=== PATIENT | male | born 1995 | race Caucasian/White ===

== ENCOUNTER 2024-06-03 08:49 | Outpatient (AMB) | payer OTHER, SELFPAY ==
--- NOTE | 2024-06-03 08:56 | MHC.PC.OV ---
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 Note: New patient visit Production Quality Manager Required: No Allergies No Known Allergies Allergy (Verified 06/03/24 08:57) Medication List - Last Reconciled 06/03/24 by Earnestine Cantu PA-C cetirizine (Zyrtec) 10 mg PO DAILY PRN doxycycline hyclate mg PO emtricitabine-tenofovir alafen 200-25 mg (Descovy) 1 tab PO DAILY fluticasone propionate 50 mcg/actuation (Flonase Allergy Relief) 1 spray intranasal DAILY Tobacco use date assessed: 06/03/24 Dental Screening Dental Screen Date: 06/03/24 Did you have a dental visit in the last 12 months?: Yes Did you have a dental problem in the last 6 months where you did not have access to dental care?: No Was dental information given to patient?: No 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 He has a history of venous thoracic syndrome and states that he will get records. He was followed at [facility] about 6 years ago for this and he did have surgical intervention. He states that he was told to only follow up if needed if he had any pain or discoloration of his left upper extremity. The patient smokes approximately three cigarettes daily, having sustained this habit for six years, and expresses a desire to discontinue. Additionally, the patient reports a long-standing difficulty with memory and concentration, suspecting undiagnosed ADHD. Concerns about hair thinning were also addressed. he has not really noted any significant hair loss at this point but would like to see Dermatology about what he can do to prolong his hairline. He also would like a skin check as he has numerous moles. His paternal grandfather has a history of skin cancer. Input regarding prior Right mastoid fracture post-skiing accident was discussed, though symptoms appear non-contributory to the current issues. Patient is following online for prescriptions for Descovy. Health Maintenance - Smoking cessation counseling discussed - Discussion regarding regular follow-up for Descovy medication management and STI/HIV screening - Recommendation for dietary adjustments, including the introduction of healthy fats and proteins - Exercise encouraged for overall well-being and cognitive function - Screening tests including liver function, kidney function, electrolytes, thyroid function, and complete blood count ordered Social History - Employment: Works on a farm; currently between farm jobs - Housing: Recently moved to [place] - Family history: Paternal grandfather with skin cancer, maternal grandparents succumbed to lung cancer due to smoking - Tobacco use: Smokes 3 cigarettes per day, expresses intention to quit eventually - Nutrition: Transitioning from a vegetarian diet to include more meat consumption - Exercise: Initiates exercise for overall health Review of Systems - Neurological: Reports memory difficulty and challenges with concentration - Respiratory: Reports current smoking - Psychiatric: Denies diagnosed ADHD but presents symptoms indicative of the disorder [facility] Surgical History (Updated 06/03/24 @ 09:07 by Carrol Le CMA) No pertinent past surgical history Family History (Updated 06/03/24 @ 09:05 by Carrol Le CMA) Paternal Grandfather Skin cancer Maternal Grandfather Lung cancer Maternal Aunt Lung cancer Maternal Grandmother Lung cancer Social History (Updated 06/03/24 @ 09:10 by Carrol Le CMA) Housing: Apartment Alcohol intake: current Patient Tobacco Use Status: Current everyday Tobacco user Cigarettes Per Day: 3 Years Smoked: 6 e-Cigarette/Vaping Use: Never Used Second Hand Smoke Exposure: No service: No Current occupational status: employed Current occupation: tobar Current occupational exposures/hazards: Yes (tractors, equipment) Cognitive needs: No Hearing needs: No Vision needs: Yes (glasses) Questionnaire PHQ-9 Over the last 2 weeks, how often have you been bothered by any of the following problems? 1. Little interest or pleasure in doing things: not at all 2. Feeling down, depressed, or hopeless: not at all 3. Trouble falling or staying asleep, or sleeping too much: not at all 4. Feeling tired or having little energy: several days 5. Poor appetite or overeating: not at all 6. Feeling bad about yourself - or that you are a failure or have let yourself or your family down: not at all 7. Trouble concentrating on things, such as reading the newspaper or watching television: several days 8. Moving or speaking so slowly that other people could have noticed. Or the opposite - being so fidgety or restless that you have been moving around a lot more than usual: not at all 9. Thoughts that you would be better off or of hurting yourself in some way: not at all Total score: 2 Depression Screening Interpretation: Negative Depression Screening Done: Yes 80648 - PHQ-9 Billing: Yes Source: Developed by Drs. Javier Blake, Kandy Haas, Luis E Johnson and colleagues, with an educational danii from [employer]. Thrive Questionnaire Date Thrive assessed: 06/03/24 I am a: Patient What is your living situation today?: I have a steady place to live Within the past 12 months, did the food you bought not last and you didn't have the money to get more?: Never true Within the past 12 months, did you worry whether your food would run out before you got money to buy more?: Never true Do you have trouble paying for medicines?: Yes Do you have trouble getting transportation to medical appointments?: No Do you have trouble paying your heating and electricity bill?: No Do you have trouble taking care of your child, family member or friend?: No Do you have trouble with day-to-day activities such as bathing, preparing meals, shopping, managing finances, etc.?: No Are you currently unemployed and looking for a job?: No Are you interested in more education?: Yes Please select the resources that you would like help with: Housing/Longterm, Food, Paying for medicine, Utilities, Daily support and Education Currently or been in a relationship where the following occur: No concerns reported THRIVE Score: 0 AUDIT C Alcohol Use Questionnaire (AUDIT-C) 1. How often do you have a drink containing alcohol?: 4 or more times a week 2. How many drinks containing alcohol do you have on a typical day when you are drinking?: 1 or 2 3. How often do you have six or more drinks on one occasion?: Never Total Score: 4 Score Reviewed/Action Taken: Yes NENA-7 AMB Questionnaire NENA-7 Date NENA - 7 assessed: 06/03/24 Feeling nervous, anxious, or on edge: 1 = Several days Not being able to stop or control worryin = Not at all Worrying too much about different things: 0 = Not at all Trouble relaxin = Several days Being so restless that it is hard to sit still: 1 = Several days Becoming easily annoyed or irritable: 0 = Not at all Feeling afraid as if something awful might happen: 0 = Not at all Total NENA-7 score (0-4 normal; 5-9 mild; 10-14 moderate; 15-21 severe): 3 Source: Developed by Drs. Javier Blake, Kandy Haas, Luis E Johnson and colleagues, with an educational danii from [employer]. NENA-7 Assessment Billing NENA-7 Assessment Tool: NENA-7 Assessment 75206 Physical exam (Primary Care) Vital Signs: Last Vital Signs Pulse 83 06/03/24 09:08 BP 100/76 06/03/24 09:08 Pulse Ox 99 06/03/24 09:08 Oxygen Delivery Method Room Air 06/03/24 09:08 BMI result Body Mass Index 22.5 Tobacco/Smoking Status: Tobacco use Status Tobacco use date assessed 06/03/24 06/03/24 09:10 Patient Tobacco Use Status Current everyday Tobacco 06/03/24 09:10 e-Cigarette/Vaping Use Never Used 06/03/24 09:10 PHQ-9: PHQ-9 Score PHQ-9: Total score 2 06/03/24 09:10 Depression Screening Interpretation: Negative Thrive Assessment: Date of Thrive Assessment Date Thrive assessed 06/03/24 06/03/24 09:10 Currently or been in a relationship where the following occur: No concerns reported Const Orientation/consciousness: patient oriented x3 HENMT Ears: hearing grossly normal bilaterally and TM's normal bilaterally General nose exam: No nasal polyps present Face and sinus: Yes sinuses nontender Mouth: Normal oral and palatal mucosa present Eyes Pupils: Equal, round and reactive pupils present EOM: EOMs intact bilaterally Neck Neck: Yes full ROM and Yes no lymphadenopathy Thyroid: Thyroid normal Chest Chest palpation & inspection: normal inspection of the chest Resp Auscultation: clear to auscultation bilaterally Cardio Rate: regular rate Rhythm: regular rhythm Heart sounds: S1 normal heart sound present and S2 normal heart sound present Peripheral pulses: Peripheral pulses 2+ throughout GI Other: Soft, nontender Auscultation: normal bowel sounds Rectal Exam - Male: Yes deferred General: Yes no CVA tenderness Back/Spine/Pelvis Other: Nontender Back: no CVA tenderness Skin General skin exam: no rashes or lesions noted Neuro General: patient oriented x3, gait normal, CN's II-XI intact bilaterally and deep tendon reflexes 2+ bilaterally Cranial nerves: Yes Equal, round and reactive pupils present Motor exam (neuro): 5/5 motor strength present throughout Sensory Exam: double simultaneous stimulation for sensation normal Coordination: [id number] test normal and Romberg test negative Extrem General: Yes normal to inspection and Yes full ROM Psych Affect: normal affect Attitude: cooperative Thought process: Normal thought process present Thought content: Normal thought content present Insight: Good insight present (Psych) Judgement: Good judgement present (Psych) Coding Level of Care Code New Pt Level 4 (35698) Complex EM visit Add On G2211 Diagnoses Hair thinning L65.9 Numerous moles D22.9 Forgetfulness R68.89 Attention and concentration deficit R41.840 Additional Codes NENA-7 Assessment Billing - NENA-7 Assessment Tool: NENA-7 Assessment 73195 ([id number]) PHQ-9 - 13337 - PHQ-9 Billing: Yes ([id number]) Assessment & Plan Assessment & Plan (1) Hair thinning: Code(s): L65.9 - Nonscarring hair loss, unspecified Category: Medical Plan: Referral to dermatology (2) Numerous moles: Code(s): D22.9 - Melanocytic nevi, unspecified Category: Medical Plan: As above (3) Forgetfulness: Code(s): R68.89 - Other general symptoms and signs Category: Medical Plan: Longstanding history of this since childhood. Wonders if this is possibly related to ADD or ADHD. Referral for neuropsych testing. Does report having imaging of the brain a few years ago and it was negative per patient. (4) Attention and concentration deficit: Code(s): R41.840 - Attention and concentration deficit Category: Medical Plan: As above Orders: Orders Vitamin B12 and Folate Today L65.9 - Nonscarring hair loss, unspecified Lipid Panel Today R41.840 - Attention and concentration deficit, R68.89 - Other general symptoms and signs TSH reflex Free T4 Today R41.840 - Attention and concentration deficit, R68.89 - Other general symptoms and signs UA CC w/rflx Micro + Cult Today Z13.220 - Encounter for screening for lipoid disorders Erythrocyte Sedimentation Rate Today L65.9 - Nonscarring hair loss, unspecified, R41.840 - Attention and concentration deficit, R68.89 - Other general symptoms and signs JEMAL Reflex Titer and Pattern Today L65.9 - Nonscarring hair loss, unspecified, R41.840 - Attention and concentration deficit, R68.89 - Other general symptoms and signs IRON PROFILE Today L65.9 - Nonscarring hair loss, unspecified, R41.840 - Attention and concentration deficit, R68.89 - Other general symptoms and signs Complete Blood Count Auto Diff Today R41.840 - Attention and concentration deficit, R68.89 - Other general symptoms and signs Comprehensive Pierron. Panel Fast Today R41.840 - Attention and concentration deficit, R68.89 - Other general symptoms and signs Magnesium Today R41.840 - Attention and concentration deficit, R68.89 - Other general symptoms and signs Lyme IgG/IgM w/reflex to WB Today R41.840 - Attention and concentration deficit, R68.89 - Other general symptoms and signs Ferritin Today L65.9 - Nonscarring hair loss, unspecified, R41.840 - Attention and concentration deficit, R68.89 - Other general symptoms and signs Referrals Dermatology Referral D22.9 - Melanocytic nevi, unspecified, L65.9 - Nonscarring hair loss, unspecified Neuropsychiatry Referral R41.840 - Attention and concentration deficit, R68.89 - Other general symptoms and signs
[2024-06-03 09:08] VITALS: BP 100/76; PULSE 83; O2SAT 99; BMI 22.5
== END 2024-06-03 09:42 | disposition home or self-care (01) ==
PROVIDERS: Visit Provider Physician Assistant
DX: L65.9 Nonscarring hair loss, unspecified (principal); D22.9 Melanocytic nevi, unspecified; R68.89 Other general symptoms and signs; R41.840 Attention and concentration deficit

== ENCOUNTER → 2024-06-03 08:49 | Outpatient (BNVA) | payer OTHER, SELFPAY | PROVIDERS: Visit Provider Physician Assistant | DX: L65.9 Nonscarring hair loss, unspecified (principal); D22.9 Melanocytic nevi, unspecified; R68.89 Other general symptoms and signs; R41.840 Attention and concentration deficit | CPT/HCPCS: 96127 ==

== ENCOUNTER 2024-06-03 10:06 | Outpatient (REF) | payer OTHER, SELFPAY ==
[2024-06-03 14:03] LABS: MANUAL DIFF FLAG NO
[2024-06-03 14:08] LABS: Basophils Absolute Auto 0.1 X10*3/uL (0.0-0.2); Eosinophils Absolute Auto 0.1 X10*3/uL (0.0-0.4); Eosinophils Percent Auto 1.5 % (0-4); Hematocrit 39.6 % (42.0-52.0); Hemoglobin 13.9 g/dl (14.0-18.0); Imm Gran Abs Auto 0.02 X10*3/uL (0.00-0.03); Imm Gran Pct Auto 0.4 % (0.0-0.4); Lymphocytes Absolute Auto 1.7 X10*3/uL (1.2-4.9); Lymphocytes Percent Auto 35.2 % (20-40); Mean Corpuscular HGB Conc 35.1 g/dl (31.0-36.0); Mean Corpuscular Hemoglobin 31.6 pg (27.0-33.0); Mean Platelet Volume 8.9 fL (9.4-12.4); Monocytes Absolute Auto 0.3 X10*3/uL (0.1-1.2); Monocytes Percent Auto 6.3 % (2-11); Neutrophils Absolute Auto 2.7 x10*3/uL (2.0-8.3); Neutrophils Percent Auto 55.6 % (45-73); Platelet Count 301 X10*3/uL (160-400); Red Cell Distribution Width 12.4 % (11.0-16.0); White Blood Count 4.8 X10*3/uL (4.8-10.8)
[2024-06-03 14:14] LABS: Appearance Urine Clear; Color Urine Yellow; Glucose Urine UA Negative (Negative); Leukocyte Esterase Urine Negative (Negative); Nitrite Urine Negative (Negative); PH 5.5 (5.0-9.0); Urine Blood Negative (Negative); Urine Ketones Negative (Negative); Urine Protein Negative (Neg-Trace)
[2024-06-03 14:36] LABS: Iron 154 mcg/dL (45-160); Magnesium 2.1 mg/dL (1.6-2.6); Percent Iron Saturation 46 % (15-50); Total Iron Binding Capacity 338 mcg/dL (228-428); Unsaturated Iron Binding 184 ug/dL
[2024-06-03 14:45] LABS: Ferritin 56 ng/mL (20-250); TSH reflex Free T4 1.33 uIU/mL (0.32-4.0)
[2024-06-03 14:50] LABS: Erythrocyte Sedimentation Rate 5 MM/HR (0-15)
[2024-06-03 14:55] LABS: Folate 11.4 ng/mL (> or = 4.0); Vitamin B12 208 pg/mL (200-900)
[2024-06-04 22:48] LABS: Lyme Abs Screen <0.90 index
[2024-06-08 07:09] LABS: Anti Nuclear Antibody Screen NEGATIVE (NEGATIVE)
== END 2024-06-03 10:07 | disposition home or self-care (01) ==
LOC: HO.WFDLDS 10:06
PROVIDERS: Visit Provider Physician Assistant
DX: R68.89 Other general symptoms and signs (principal); L65.9 Nonscarring hair loss, unspecified; R41.840 Attention and concentration deficit; Z13.220 Encounter for screening for lipoid disorders
CPT/HCPCS: 36415; 81003; 82607; 82728; 82746; 83540; 83735; 84443; 85025; 85652; 86038; 86617; 86618

== ENCOUNTER 2024-06-10 10:30 | Outpatient (REF) | payer OTHER, SELFPAY ==
[2024-06-10 11:58] LABS: Alanine Aminotransferase 35 U/L (0-40); Albumin Level 4.7 g/dL (3.5-5.0); Anion Gap 10 (12-20); Aspartate Amino Transferase 30 U/L (5-37); Bilirubin Total 0.4 mg/dL (0.0-1.0); Blood Urea Nitrogen 13 mg/dL (9-16); Calcium 9.4 mg/dL (8.4-10.2); Carbon Dioxide 27 mmol/L (22-29); Chloride 110 mmol/L (96-108); Cholesterol 231 mg/dL (<200); Estimated Glomerular Filt Rate > 60; Glucose Fasting 97 mg/dL (60-99); HDL Cholesterol 60 mg/dL (>40); LDL Cholesterol Calculated 142 mg/dL (<100); Sodium 143 mmol/L (135-145); Total Protein 7.2 g/dL (6.5-8.0); Triglycerides 147 mg/dL (<150)
[2024-06-10 12:28] LABS: Alkaline Phosphatase 63 U/L (39-117)
== END 2024-06-10 10:31 | disposition home or self-care (01) ==
LOC: HO.WFDLDS 10:30
PROVIDERS: Visit Provider Physician Assistant
DX: R68.89 Other general symptoms and signs (principal); R41.840 Attention and concentration deficit
CPT/HCPCS: 36415; 80053; 80061

== ENCOUNTER 2024-09-02 15:28 | Outpatient (AMB) | payer OTHER, SELFPAY ==
--- NOTE | 2024-09-02 15:33 | A.OFFPC_ITS ---
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 Vasc: He has a history of venous thoracic syndrome and states that he will get records. He was followed at [facility] about 6 years ago for this and he did have surgical intervention. He states that he was told to only follow up if needed if he had any pain or discoloration of his left upper extremity. His left upper extremity is approximately 28.5 cm and his right is 26.5 cm. Psych: Additionally, the patient reports a long-standing difficulty with memory and concentration, suspecting undiagnosed ADHD. Was referred to behavioral health. Id: Patient is following online for prescriptions for Descovy. Heme: Recent labs showed B12 deficiency. [facility] Surgical History (Updated 06/03/24 @ 09:07 by Carrol Le CMA) No pertinent past surgical history Family History (Updated 06/03/24 @ 09:05 by Carrol Le CMA) Paternal Grandfather Skin cancer Maternal Grandfather Lung cancer Maternal Aunt Lung cancer Maternal Grandmother Lung cancer Social History (Updated 06/03/24 @ 09:10 by Carrol Le CMA) Housing: Apartment Alcohol intake: current Patient Tobacco Use Status: Current everyday Tobacco user Cigarettes Per Day: 3 Years Smoked: 6 e-Cigarette/Vaping Use: Never Used Second Hand Smoke Exposure: No service: No Current occupational status: employed Current occupation: tobar Current occupational exposures/hazards: Yes (tractors, equipment) Cognitive needs: No Hearing needs: No Vision needs: Yes (glasses) Questionnaire Thrive Questionnaire Date Thrive assessed: 06/03/24 I am a: Patient What is your living situation today?: I have a steady place to live Within the past 12 months, did the food you bought not last and you didn't have the money to get more?: Never true Within the past 12 months, did you worry whether your food would run out before you got money to buy more?: Never true Do you have trouble paying for medicines?: Yes Do you have trouble getting transportation to medical appointments?: No Do you have trouble paying your heating and electricity bill?: No Do you have trouble taking care of your child, family member or friend?: No Do you have trouble with day-to-day activities such as bathing, preparing meals, shopping, managing finances, etc.?: No Are you currently unemployed and looking for a job?: No Are you interested in more education?: Yes Currently or been in a relationship where the following occur: No concerns reported THRIVE Score: 0 NENA-7 AMB Questionnaire NENA-7 Date NENA - 7 assessed: 06/03/24 Source: Developed by Drs. Javier Blake, Kandy Haas, Luis E Johnson and colleagues, with an educational danii from [employer]. Physical exam (Primary Care) Vital Signs: Last Vital Signs Pulse 80 09/02/24 15:36 Resp 12 09/02/24 15:36 BP 98/64 09/02/24 15:36 Pulse Ox 97 09/02/24 15:36 Oxygen Delivery Method Room Air 09/02/24 15:36 BMI result Body Mass Index 23.0 Tobacco/Smoking Status: Tobacco use Status Tobacco use date assessed 09/02/24 09/02/24 15:35 Patient Tobacco Use Status Current everyday Tobacco 09/02/24 15:35 e-Cigarette/Vaping Use Never Used 09/02/24 15:35 Thrive Assessment: Date of Thrive Assessment Date Thrive assessed 06/03/24 09/02/24 15:35 Currently or been in a relationship where the following occur: No concerns reported Const Orientation/consciousness: patient oriented x3 HENMT Ears: hearing grossly normal bilaterally and TM's normal bilaterally General nose exam: No nasal polyps present Face and sinus: Yes sinuses nontender Mouth: Normal oral and palatal mucosa present Eyes Pupils: Equal, round and reactive pupils present EOM: EOMs intact bilaterally Neck Neck: Yes full ROM and Yes no lymphadenopathy Thyroid: Thyroid normal Chest Chest palpation & inspection: normal inspection of the chest Resp Auscultation: clear to auscultation bilaterally Cardio Rate: regular rate Rhythm: regular rhythm Heart sounds: S1 normal heart sound present and S2 normal heart sound present Peripheral pulses: Peripheral pulses 2+ throughout GI Other: Soft, nontender Auscultation: normal bowel sounds Rectal Exam - Male: Yes deferred General: Yes no CVA tenderness Back/Spine/Pelvis Other: Nontender Back: no CVA tenderness Skin General skin exam: no rashes or lesions noted Neuro General: patient oriented x3, gait normal, CN's II-XI intact bilaterally and deep tendon reflexes 2+ bilaterally Cranial nerves: Yes Equal, round and reactive pupils present Motor exam (neuro): 5/5 motor strength present throughout Sensory Exam: double simultaneous stimulation for sensation normal Coordination: [id number] test normal and Romberg test negative Extrem General: Yes normal to inspection and Yes full ROM Psych Affect: normal affect Attitude: cooperative Thought process: Normal thought process present Thought content: Normal thought content present Insight: Good insight present (Psych) Judgement: Good judgement present (Psych) Coding Level of Care Code Est Pt Prev Care 18-39y(50856) Diagnoses Routine general medical examination at a [facility] care facility Z00.00 Anemia D64.9 Assessment & Plan Assessment & Plan (1) Routine general medical examination at a health care facility: Code(s): Z00.00 - Encounter for general adult medical examination without abnormal findings Plan: Health maintenance reviewed. Labs reviewed. (2) Anemia: Code(s): D64.9 - Anemia, unspecified Category: Medical Plan: We will start B12 supplements and follow up for repeat labs in 4-6 weeks.
[2024-09-02 15:36] VITALS: BP 98/64; PULSE 80; RESP 12; O2SAT 97; BMI 23.0
== END 2024-09-02 16:09 | disposition home or self-care (01) ==
LOC: HO.HMCFM 15:28
PROVIDERS: PCP Physician Assistant; Visit Provider Physician Assistant
DX: Z00.00 Encounter for general adult medical examination without abnormal findings (principal); D64.9 Anemia, unspecified

== ENCOUNTER → 2024-09-02 15:28 | Outpatient (BNVA) | payer OTHER, SELFPAY | PROVIDERS: PCP Physician Assistant; Visit Provider Physician Assistant ==

== ENCOUNTER → 2024-11-18 16:03 | Outpatient (AMB) | payer OTHER, SELFPAY ==
--- NOTE | 2024-11-18 15:57 | A.OFFPC_ITS ---
Intake Visit Reasons: medication Intake Note: Discuss new medication. Strategic Partnership Manager Required: No Allergies No Known Allergies Allergy (Verified 11/18/24 15:58) Medication List - Last Reconciled 11/18/24 by Earnestine Cantu PA-C cetirizine (Zyrtec) 10 mg PO DAILY PRN doxycycline hyclate mg PO PRN emtricitabine-tenofovir alafen 200-25 mg (Descovy) 1 tab PO DAILY finasteride 5 mg PO DAILY fluticasone propionate 50 mcg/actuation (Flonase Allergy Relief) 1 spray intranasal DAILY minoxidil 10 mg PO DAILY Tobacco use date assessed: 09/02/24 Dental Screening Dental Screen Date: 06/03/24 HPI medication HPI Details The patient is a 29-year-old male presenting today for a f/u.. Psych: Additionally, the patient reports a long-standing difficulty with memory and concentration, suspecting undiagnosed ADHD. Was referred to behavioral health but never followed up because he states it was [id number]. He is wondering about trying Wellbutrin. He states that he does have mild depressive symptoms at time including negative self talk and thoughts and some friends have recommended he try Wellbutrin. In the past he was on sertraline which he felt was ineffective. He has never been how hospitalized for his anxiety or depressed. Id: Patient is following online for prescriptions for Descovy. Heme: Recent labs showed B12 deficiency. Patient states has not yet returned for labs to get checked. He plans to do this tomorrow. [facility] Surgical History No pertinent past surgical history Family History Paternal Grandfather Skin cancer Maternal Grandfather Lung cancer Maternal Aunt Lung cancer Maternal Grandmother Lung cancer Social History (Updated 11/18/24 @ 16:01 by Carrol Le CMA) Housing: Apartment Alcohol intake: current Patient Tobacco Use Status: Current everyday Tobacco user Cigarettes Per Day: 3 Years Smoked: 6 e-Cigarette/Vaping Use: Never Used Second Hand Smoke Exposure: No service: No Current occupational status: employed Current occupation: tobar Current occupational exposures/hazards: Yes (tractors, equipment) Cognitive needs: No Hearing needs: No Vision needs: Yes (glasses) Questionnaire Thrive Questionnaire Date Thrive assessed: 06/03/24 I am a: Patient What is your living situation today?: I have a steady place to live Within the past 12 months, did the food you bought not last and you didn't have the money to get more?: Never true Within the past 12 months, did you worry whether your food would run out before you got money to buy more?: Never true Do you have trouble paying for medicines?: Yes Do you have trouble getting transportation to medical appointments?: No Do you have trouble paying your heating and electricity bill?: No Do you have trouble taking care of your child, family member or friend?: No Do you have trouble with day-to-day activities such as bathing, preparing meals, shopping, managing finances, etc.?: No Are you currently unemployed and looking for a job?: No Are you interested in more education?: Yes Currently or been in a relationship where the following occur: No concerns reported THRIVE Score: 0 NENA-7 AMB Questionnaire NENA-7 Date NENA - 7 assessed: 06/03/24 Source: Developed by Drs. Javier Blake, Kandy Haas, Luis E Johnson and colleagues, with an educational danii from [employer]. Physical exam (Primary Care) Tobacco/Smoking Status: Tobacco use Status Tobacco use date assessed 09/02/24 11/18/24 16:01 Patient Tobacco Use Status Current everyday Tobacco 11/18/24 16:01 e-Cigarette/Vaping Use Never Used 11/18/24 16:01 Thrive Assessment: Date of Thrive Assessment Date Thrive assessed 06/03/24 11/18/24 16:01 Currently or been in a relationship where the following occur: No concerns reported Telehealth Telehealth Telehealth Platform: Telephone Location of provider rendering services: practice address Location of patient: address on file Patient Identification confirmed using: Name, : No Telehealth method: voice only Patient verbally consented to treatment: Yes Patient verbally consented to billing insurance company: Yes Patient informed of any privacy concerns related to visit: Yes Minutes spent on Phone/Video with Pt.: 16 Coding Level of Care Code Est Pt Level 2 (27368) Diagnoses Mild major depression F32.0 Attention and concentration deficit R41.840 Anemia D64.9 Assessment & Plan Assessment & Plan (1) Mild major depression: Code(s): F32.0 - Major depressive disorder, single episode, mild Category: Medical Plan: We will try Wellbutrin. Discussed risks and benefits and this effects of this medication. Advised to seek emergent medical treatment should he develop any SI/HI. Follow up in 4-6 weeks. (2) Attention and concentration deficit: Code(s): R41.840 - Attention and concentration deficit Category: Medical Plan: As above (3) Anemia: Code(s): D64.9 - Anemia, unspecified Category: Medical Plan: Labs ordered Medications: New bupropion HCl XL (Wellbutrin XL) 150 mg PO QAM 30 tabs 3RF
== END ==
LOC: HO.HMCFM 16:03
PROVIDERS: PCP Physician Assistant; Visit Provider Physician Assistant
DX: F32.0 Major depressive disorder, single episode, mild (principal); R41.840 Attention and concentration deficit; D64.9 Anemia, unspecified

== ENCOUNTER → 2024-11-18 16:03 | Outpatient (BNVA) | payer OTHER, SELFPAY | PROVIDERS: PCP Physician Assistant; Visit Provider Physician Assistant ==

== ENCOUNTER 2024-11-19 07:39 | Outpatient (REF) | payer OTHER, SELFPAY ==
[2024-11-19 11:39] LABS: MANUAL DIFF FLAG NO
[2024-11-19 11:44] LABS: Eosinophils Absolute Auto 0.1 X10*3/uL (0.0-0.4); Eosinophils Percent Auto 2.5 % (0-4); Hematocrit 40.9 % (42.0-52.0); Hemoglobin 14.6 g/dl (14.0-18.0); Imm Gran Abs Auto 0.01 X10*3/uL (0.00-0.03); Imm Gran Pct Auto 0.3 % (0.0-0.4); Lymphocytes Absolute Auto 1.6 X10*3/uL (1.2-4.9); Lymphocytes Percent Auto 40.3 % (20-40); Mean Corpuscular HGB Conc 35.7 g/dl (31.0-36.0); Mean Corpuscular Hemoglobin 31.5 pg (27.0-33.0); Mean Corpuscular Volume 88.3 fL (80.0-98.0); Mean Platelet Volume 8.9 fL (9.4-12.4); Monocytes Absolute Auto 0.3 X10*3/uL (0.1-1.2); Monocytes Percent Auto 6.8 % (2-11); Neutrophils Percent Auto 49.1 % (45-73); Platelet Count 284 X10*3/uL (160-400); Red Blood Count 4.63 X10*6/uL (4.60-5.80); Red Cell Distribution Width 12.3 % (11.0-16.0)
[2024-11-19 12:19] LABS: Iron 93 mcg/dL (45-160); Percent Iron Saturation 28 % (15-50); Total Iron Binding Capacity 338 mcg/dL (228-428); Unsaturated Iron Binding 245 ug/dL
[2024-11-19 12:36] LABS: Ferritin 45 ng/mL (20-250)
[2024-11-19 12:48] LABS: Folate 7.3 ng/mL (> or = 4.0); Vitamin B12 424 pg/mL (200-900)
== END 2024-11-19 07:40 | disposition home or self-care (01) ==
LOC: HO.WFDLDS 07:39
PROVIDERS: Visit Provider Physician Assistant
DX: D64.9 Anemia, unspecified (principal)
CPT/HCPCS: 36415; 82607; 82728; 82746; 83540; 85025